=== PATIENT | female | born 1945 | race Caucasian/White ===

== ENCOUNTER 2017-03-17 06:57 | Outpatient (CLI) | payer MEDICARE | END 2017-03-17 06:58 | disposition home or self-care (01) | LOC: BICMRI 06:57 | PROVIDERS: ATTEND Anesthesiology Pain Medicine | DX: M47.22 Other spondylosis with radiculopathy, cervical region (principal); M48.02 Spinal stenosis, cervical region | CPT/HCPCS: 72052; 72141 ==

== ENCOUNTER 2017-08-30 07:31 | Outpatient (CLI) | payer MEDICARE ==
[2017-08-30] MEDS ORDERED: Iopamidol 370 76% 100 ML VIAL ONE (09:00)
--- NOTE | 2017-08-30 13:37 | CT ---
CT ABDOMEN AND PELVIS WITH IV CONTRAST: TECHNIQUE: Multiple axial tomograms were obtained through the abdomen and pelvis with IV enhancement. Oral cont rast was given. INDICATION: Abdominal pain. Localized epigastric pain. The patient is under treatment for lung cancer. COMPARISON: Correlation was made to a noncontrast CT abdomen and pelvis performed with PET scan 04/30/15. FINDINGS: The lung bases appear clear of infiltrate. There is evidence of a small focus of loculated fluid in the left lung base seen along the anterior hemidiaphragm. This does not layer posteriorly on this rodríguez pine projection. There is a 1.2 cm cyst in the mid right lobe of the liver which is a stable finding. Liver, spleen, and pancreas otherwise unremarkable. Adrenal glands unremarkable. Kidneys appear unremarkable. There are small bilateral renal cystic lesions. The largest is in the inferior pole of the right kidney measuring approximately 1.0 cm. A 0.8 cm cyst superior left kidney . There are other tiny low-density foci bilaterally which are too small to adequately characterize. The stomach and duodenum appear unremarkable. Small bowel loops appear normal. Diverticulosis of th e left colon and sigmoid is noted without CT evidence of diverticulitis. Pelvic structures are obscu red due to bilateral hip prostheses. This obscures the urinary bladder. The patient is post hystere ctomy by history. IMPRESSION: 1. A small amount of fluid in the left lung base along the anterior left hemidiaphragm. 2. Hepatic cyst is stable. 3. Bilateral renal cystic lesions as described. 4. Diverticulosis. POS: [facility]
== END 2017-08-30 07:32 | disposition home or self-care (01) ==
LOC: SCSCT 07:31
PROVIDERS: ATTEND Internal Medicine Gastroenterology
DX: C34.90 Malignant neoplasm of unspecified part of unspecified bronchus or lung (principal); K57.90 Diverticulosis of intestine, part unspecified, without perforation or abscess without bleeding; K76.89 Other specified diseases of liver; K21.9 Gastro-esophageal reflux disease without esophagitis; N28.1 Cyst of kidney, acquired; R63.5 Abnormal weight gain; Z96.649 Presence of unspecified artificial hip joint
CPT/HCPCS: 74177; 82565

== ENCOUNTER 2017-10-13 13:49 | Outpatient (CLI) | payer MEDICARE | END 2017-10-13 13:50 | disposition home or self-care (01) | LOC: SCSMAMMO 13:49 → BICMAMMO 13:50 | PROVIDERS: ATTEND Internal Medicine | DX: Z12.31 Encounter for screening mammogram for malignant neoplasm of breast (principal); Z85.3 Personal history of malignant neoplasm of breast; Z85.118 Personal history of other malignant neoplasm of bronchus and lung; Z85.820 Personal history of malignant melanoma of skin | CPT/HCPCS: 77063; 77067 ==

== ENCOUNTER 2017-10-22 10:52 | Outpatient (CLI) | payer MEDICARE ==
--- NOTE | 2017-10-22 14:49 | RAD ---
LEFT HIP 2 VIEWS: HISTORY: M16.12. COMPARISON: CT 08/30/17. FINDINGS: Satisfactory appearance of the left hip arthroplasty. There are few subchondral cysts in the left ac etabulum. Calcified granulomas in the pelvis. The obturator ring is intact. IMPRESSION: Satisfactory appearance of the orthoplasty. POS: [facility]
== END 2017-10-22 10:53 | disposition home or self-care (01) ==
LOC: SCSRAD 10:52
DX: M16.12 Unilateral primary osteoarthritis, left hip (principal); Z98.890 Other specified postprocedural states

== ENCOUNTER 2017-11-03 08:51 | Outpatient (CLI) | payer MEDICARE ==
[2017-11-03] MEDS ORDERED: Magnevist 469MG/ML 20 ML VIAL ONE (09:00)
--- NOTE | 2017-11-03 15:04 | MRI ---
MRI BRAIN WITH AND WITHOUT CONTRAST: Date: 11/03/17 HISTORY: 72-year-old female with: C34.11, adenocarcinoma of upper lobe of right lung. Squamous cell carcinoma, C80.1. Personal history of malignant neoplasm of breast, Z85.3. Personal history of melanoma of skin, Z85.820. TECHNIQUE: Multiple sequences obtained in axial, sagittal, and coronal planes; pre and post IV injection of gado linium-based contrast agent: 13 mL MultiHance. FINDINGS: There is (reportedly nonremovable) ferromagnetic material in the oral cavity that causes severe magne tic susceptibility artifact. This results in obscuring of large portions of the anterior and inferior brain on the diffusion-weighted images and ADC map, and especially the gradient echo sequence. The ventricles are normal in size and configuration. There is no major intraaxial signal abnormality , restricted diffusion (within the areas not affected by the severe metallic artifact), abnormal intr aaxial enhancement, mass, midline shift or any other mass effect, recent intraaxial hemorrhage, or ex traaxial fluid collection. There is a 1 x 0.7 x 1.4 cm homogeneous enhancing extra-axial small mass at the anterior inferior asp ect of the interhemispheric falx, without adjacent vasogenic edema, consistent with a small meningiom a. Likewise, there is a similar appearing 1.4 x 1.3 x 0.6 cm such lesion at the posterior interhemispher ic falx more superiorly intracranially, with no adjacent vasogenic edema. The more posterior superior lesion was present on a prior MRI of 09/05/08, in retrospect. The more an terior inferior one is difficult to visualize on the previous MRI. IMPRESSION: 1. No evidence of brain metastasis. 2. Incidental finding of two small meningiomas at the interhemispheric falx. 3. Otherwise normal brain. jn[] POS: [facility]
== END 2017-11-03 08:52 | disposition home or self-care (01) ==
LOC: SCSMRI 08:51
PROVIDERS: ATTEND Internal Medicine Medical Oncology
DX: C34.11 Malignant neoplasm of upper lobe, right bronchus or lung (principal); C80.1 Malignant (primary) neoplasm, unspecified; R41.3 Other amnesia; Z85.3 Personal history of malignant neoplasm of breast; Z85.820 Personal history of malignant melanoma of skin
CPT/HCPCS: 70553; 82565; A9579

== ENCOUNTER 2018-10-18 08:40 | Outpatient (CLI) | payer MEDICARE ==
--- NOTE | 2018-10-18 12:58 | MMO ---
Bilateral MAMMO Bilat Screen [facility]. CLINICAL HISTORY: Patient is 73 years old and is seen for screening. The patient has no family history of breast cancer. The patient has a history of malignant (generic) in the left breast 2004; lung cancer; Skin cancer and vulva cancer. The patient has a history of left Lumpectomy in 2000 - malignant and right Excisional Biopsy - benign. VIEWS: The views performed were: bilateral craniocaudal with tomosynthesis and bilateral mediolateral oblique with tomosynthesis. FILMS COMPARED: The present examination has been compared to prior imaging studies performed at [facility] on 12/19/2014, 10/04/2015, 10/12/2016 and 10/13/2017. MAMMOGRAM FINDINGS: The breasts are heterogeneously dense, which could obscure a lesion on mammography. Finding 1: There are stable benign appearing calcifications seen in both breasts. Finding 2: There is a stable biopsy clip seen in the right breast. Finding 3: There are stable post operative changes seen in the left breast. There are no suspicious masses, suspicious calcifications, or new areas of architectural distortion. IMPRESSION: THERE IS NO MAMMOGRAPHIC EVIDENCE OF MALIGNANCY. A ROUTINE FOLLOW-UP MAMMOGRAM IN 1 YEAR IS RECOMMENDED. THE RESULTS OF THIS EXAM WERE SENT TO THE PATIENT. ACR BI-RADS Category 2 - Benign finding MAMMOGRAPHY NOTE: 1. A negative mammogram report should not delay a biopsy if a dominant of clinically suspicious mass is present. 2. Approximately 10% to 15% of breast cancers are not detected by mammography. 3. Adenosis and dense breasts may obscure an underlying neoplasm. Reported by: SANDRA BENSON MD Electonically Signed: [id number]
== END 2018-10-18 08:41 | disposition home or self-care (01) ==
LOC: BICMAMMO 08:40
PROVIDERS: ATTEND Internal Medicine
DX: Z12.31 Encounter for screening mammogram for malignant neoplasm of breast (principal); Z85.3 Personal history of malignant neoplasm of breast; Z85.820 Personal history of malignant melanoma of skin; Z85.118 Personal history of other malignant neoplasm of bronchus and lung; Z85.44 Personal history of malignant neoplasm of other female genital organs
CPT/HCPCS: 77063; 77067

== ENCOUNTER 2019-05-03 13:20 | Outpatient (CLI) | payer MEDICARE ==
--- NOTE | 2019-05-03 14:04 | RAD ---
XR Thoracic Spine 3 V STANDARD HISTORY: Back pain COMPARISON: None. FINDINGS: Multilevel degenerative changes are present. No acute fracture, subluxation or bony destruc tion is seen. IMPRESSION: Thoracic spondylosis
--- NOTE | 2019-05-03 15:21 | RAD ---
BILATERAL HIPS 2 VIEWS: Date: 05/03/2019 HISTORY: Right and left hip pain. Patient fell a week ago. FINDINGS: On the right side, a total hip prosthesis is in good position without signs of loosening or fracture. Similar changes are seen on the left. IMPRESSION: Bilateral hip prostheses. No evidence of fracture. POS: [facility]
--- NOTE | 2019-05-03 15:29 | RAD ---
LUMBAR SPINE SERIES 2 VIEWS WEIGHTBEARING: Date: 05/03/2019 HISTORY: Low back pain. Patient fell a week ago. FINDINGS: The bones appear diffusely demineralized. Vertebral bodies maintain normal height with minimal disc s pace narrowing. Degenerative osteophytes are degenerative facet changes are present. Pedicles are int act. Vascular calcifications are noted. IMPRESSION: Mild arthritic changes in the spine. POS: [facility]
== END 2019-05-03 13:21 | disposition home or self-care (01) ==
LOC: BICRAD 13:20
PROVIDERS: ATTEND Internal Medicine
DX: M54.5 Low back pain (principal); M25.552 Pain in left hip; M25.551 Pain in right hip; M47.816 Spondylosis without myelopathy or radiculopathy, lumbar region; Z96.641 Presence of right artificial hip joint; Z96.642 Presence of left artificial hip joint; M47.814 Spondylosis without myelopathy or radiculopathy, thoracic region
CPT/HCPCS: 72072; 72100; 73522

== ENCOUNTER 2021-05-16 13:41 | Outpatient (CLI) | payer MEDICARE ==
[2021-05-17 18:54] LABS: SARS-CoV-2 PCR by NAA DETECTED (NotDetected)
== END 2021-05-16 13:42 | disposition home or self-care (01) ==
LOC: LABBT 13:41
PROVIDERS: ATTEND Internal Medicine Gastroenterology
DX: U07.1 COVID-19 (principal); Z01.812 Encounter for preprocedural laboratory examination
CPT/HCPCS: U0003; U0005

== ENCOUNTER 2021-05-20 09:32 | Outpatient (CLI) | payer MEDICARE | END 2021-05-20 09:33 | disposition home or self-care (01) | LOC: RAD 09:32 | PROVIDERS: ATTEND Physician Assistant Medical | DX: R13.19 Other dysphagia (principal); K21.9 Gastro-esophageal reflux disease without esophagitis | CPT/HCPCS: 74220 ==

== ENCOUNTER 2023-01-04 09:52 | Outpatient (CLI) | payer MEDICARE | END 2023-01-04 09:53 | disposition home or self-care (01) | LOC: BICMAMMO 09:52 | PROVIDERS: ATTEND Internal Medicine | DX: R92.8 Other abnormal and inconclusive findings on diagnostic imaging of breast (principal); N63.20 Unspecified lump in the left breast, unspecified quadrant | CPT/HCPCS: 76642; 77065; G0279 ==